=== PATIENT | female | born 1950 | race Caucasian/White ===

== ENCOUNTER → 2017-04-14 | Outpatient (CLI) | payer MEDICAID ==
[2013-10-31 18:34] VITALS: BP 113/74
[~2017-04-14] MED LIST: AMITRIPTYLINE H25 M1 PO; CIPRO 500MG TA500 MG PO; DEMADEX10 MG PO; DIFLUCAN150 MG PO; HCTZ 25MG25 MG PO; HUMULIN 70/30 PE3 ML SC; HYDROCODONE BIT1 T46 PO; LAMISIL1% TP; LANSOPRAZOLE15 MG PO; LANTUS PEN100 U/ML SC; LASIX40 MG PO; LEVAQUIN 250MG250 M1 PO; LISINOPRIL20 MG PO; MELOXICAM15 MG PO; NOVOLOG 100U100 U/M1 SC; NOVOLOG 100U100 U/M1 SQ; Patient's Own Medication PO; SIMVASTATIN40 MG PO; ZESTRIL 5MG5 MG PO; ZYRTEC10 MG PO
== END ==
LOC: LAB 12:00
DX: E11.9 Type 2 diabetes mellitus without complications (principal)

== ENCOUNTER 2017-05-23 13:30 | Outpatient (RCR) | payer MEDICAID ==
[2013-10-31 18:34] VITALS: BP 113/74
== END 2017-05-23 14:00 | disposition home or self-care (01) ==
LOC: PT 13:30
DX: E11.9 Type 2 diabetes mellitus without complications (principal); Z91.81 History of falling; M62.81 Muscle weakness (generalized)

== ENCOUNTER → 2017-07-11 | Outpatient (CLI) | payer MEDICAID ==
[2013-10-31 18:34] VITALS: BP 113/74
== END ==
LOC: MAMMO 09:09
DX: Z12.31 Encounter for screening mammogram for malignant neoplasm of breast (principal)
CPT/HCPCS: G0202

== ENCOUNTER → 2017-07-13 | Outpatient (CLI) | payer MEDICAID ==
[2013-10-31 18:34] VITALS: BP 113/74
== END ==
LOC: LAB 09:51
DX: E11.9 Type 2 diabetes mellitus without complications (principal)

== ENCOUNTER → 2017-10-02 | Outpatient (CLI) | payer MEDICAID ==
[2013-10-31 18:34] VITALS: BP 113/74
[2017-10-02 08:48] LABS: ALBUMIN 3.7 g/dL (3.5-5.0); BUN/CREATININE RATIO 28.5 (6.0-26.0); CALCIUM 9.4 mg/dL (8.4-10.2); POTASSIUM 4.1 mmol/L (3.6-5.0); TOTAL BILIRUBIN 0.7 mg/dL (0.2-1.3); TOTAL PROTEIN 7.3 g/dL (6.3-8.2)
== END ==
LOC: LAB 08:05
PROVIDERS: Family Medicine
DX: I10 Essential (primary) hypertension (principal); E11.9 Type 2 diabetes mellitus without complications; Z12.12 Encounter for screening for malignant neoplasm of rectum

== ENCOUNTER → 2017-10-11 | Outpatient (CLI) | payer MEDICAID ==
[2013-10-31 18:34] VITALS: BP 113/74
== END ==
LOC: LAB 10:07
DX: I10 Essential (primary) hypertension (principal); E11.9 Type 2 diabetes mellitus without complications; Z12.12 Encounter for screening for malignant neoplasm of rectum

== ENCOUNTER → 2017-10-27 | Outpatient (CLI) | payer MEDICAID ==
[2013-10-31 18:34] VITALS: BP 113/74
== END ==
LOC: RAD 15:33
DX: M54.2 Cervicalgia (principal); M25.512 Pain in left shoulder; E11.42 Type 2 diabetes mellitus with diabetic polyneuropathy; E11.9 Type 2 diabetes mellitus without complications; M85.88 Other specified disorders of bone density and structure, other site; M50.30 Other cervical disc degeneration, unspecified cervical region

== ENCOUNTER → 2017-11-06 | Outpatient (CLI) | payer MEDICAID ==
[2013-10-31 18:34] VITALS: BP 113/74
== END ==
LOC: RAD 13:12
DX: M54.2 Cervicalgia (principal); S46.812A Strain of other muscles, fascia and tendons at shoulder and upper arm level, left arm, initial encounter; X58.XXXA Exposure to other specified factors, initial encounter; M75.22 Bicipital tendinitis, left shoulder; M19.012 Primary osteoarthritis, left shoulder; M77.8 Other enthesopathies, not elsewhere classified; E11.42 Type 2 diabetes mellitus with diabetic polyneuropathy

== ENCOUNTER 2017-11-30 10:00 | Outpatient (RCR) | payer MEDICAID ==
[2013-10-31 18:34] VITALS: BP 113/74
== END 2017-12-04 | disposition home or self-care (01) ==
LOC: PT
DX: M25.512 Pain in left shoulder (principal)

== ENCOUNTER 2017-12-21 10:00 | Outpatient (RCR) | payer MEDICAID ==
[2013-10-31 18:34] VITALS: BP 113/74
== END 2017-12-21 10:30 | disposition home or self-care (01) ==
LOC: PT 10:00
DX: M75.122 Complete rotator cuff tear or rupture of left shoulder, not specified as traumatic (principal); Z88.8 Allergy status to other drugs, medicaments and biological substances

== ENCOUNTER → 2017-12-28 | Outpatient (CLI) | payer MEDICAID ==
[2013-10-31 18:34] VITALS: BP 113/74
== END ==
LOC: LAB 16:46
DX: M54.2 Cervicalgia (principal); I10 Essential (primary) hypertension; E11.9 Type 2 diabetes mellitus without complications

== ENCOUNTER → 2018-04-19 | Outpatient (CLI) | payer MEDICAID ==
[~2018-04-19] VITALS: Ht 160 cm; Wt 106.2 kg
[2018-04-19 14:20] VITALS: BP 180/68
== END ==
LOC: AMSURD 14:22
DX: I10 Essential (primary) hypertension (principal)

== ENCOUNTER → 2018-04-25 | Outpatient (CLI) | payer MEDICAID ==
[2018-04-19 14:20] VITALS: BP 180/68
== END ==
LOC: LAB 15:58
DX: E11.9 Type 2 diabetes mellitus without complications (principal)

== ENCOUNTER → 2018-07-12 | Outpatient (CLI) | payer MEDICAID ==
[2018-04-19 14:20] VITALS: BP 180/68
== END ==
LOC: MAMMO 09:04
DX: Z12.31 Encounter for screening mammogram for malignant neoplasm of breast (principal)

== ENCOUNTER → 2018-10-04 | Outpatient (CLI) | payer MEDICAID ==
[2018-04-19 14:20] VITALS: BP 180/68
[2018-10-04 08:50] LABS: ALBUMIN 3.7 g/dL (3.5-5.0); CALCIUM 9.3 mg/dL (8.4-10.2); POTASSIUM 4.5 mmol/L (3.6-5.0); TOTAL BILIRUBIN 0.6 mg/dL (0.2-1.3); TOTAL PROTEIN 6.6 g/dL (6.3-8.2)
== END ==
LOC: LAB 08:11
PROVIDERS: Family Medicine
DX: E11.9 Type 2 diabetes mellitus without complications (principal); I10 Essential (primary) hypertension; E78.2 Mixed hyperlipidemia

== ENCOUNTER → 2018-10-11 | Outpatient (CLI) | payer MEDICAID ==
[2018-04-19 14:20] VITALS: BP 180/68
[2018-10-11 14:40] LABS: URINE APPEARANCE CLOUDY; URINE COLOR YELLOW
[2018-10-11 14:41] LABS: URINE BILIRUBIN NEGATIVE (NEGATIVE); URINE BLOOD 50 ery/uL (NEGATIVE); URINE KETONE NEGATIVE (NEGATIVE); URINE LEUKOCYTE ESTERASE 1+ (NEGATIVE); URINE NITRATE POSITIVE (NEGATIVE); URINE PROTEIN(semi-quant) TRACE mg/dL (NEGATIVE); URINE UROBILINOGEN NORMAL (NORMAL); URINE WBC 31-50 /hpf (0-3)
== END ==
LOC: LAB 14:22
PROVIDERS: Family Medicine
DX: I35.1 Nonrheumatic aortic (valve) insufficiency (principal); I11.9 Hypertensive heart disease without heart failure; R06.09 Other forms of dyspnea; E11.65 Type 2 diabetes mellitus with hyperglycemia; L30.9 Dermatitis, unspecified; N39.0 Urinary tract infection, site not specified

== ENCOUNTER → 2018-10-17 | Outpatient (CLI) | payer MEDICAID ==
[2018-04-19 14:20] VITALS: BP 180/68
[2018-10-17 12:33] LABS: URINE APPEARANCE CLEAR; URINE COLOR YELLOW
[2018-10-17 12:34] LABS: URINE BILIRUBIN NEGATIVE (NEGATIVE); URINE BLOOD TRACE (NEGATIVE); URINE KETONE NEGATIVE (NEGATIVE); URINE LEUKOCYTE ESTERASE 1+ (NEGATIVE); URINE NITRATE NEGATIVE (NEGATIVE); URINE PROTEIN(semi-quant) NEGATIVE (NEGATIVE); URINE UROBILINOGEN NORMAL (NORMAL)
== END ==
LOC: LAB 11:08
PROVIDERS: Family Medicine
DX: N39.0 Urinary tract infection, site not specified (principal)

== ENCOUNTER → 2018-10-23 | Outpatient (CLI) | payer MEDICAID ==
[2018-04-19 14:20] VITALS: BP 180/68
[2018-10-23 20:09] LABS: URINE APPEARANCE HAZY; URINE COLOR YELLOW
[2018-10-23 20:10] LABS: URINE BILIRUBIN NEGATIVE (NEGATIVE); URINE BLOOD TRACE (NEGATIVE); URINE KETONE NEGATIVE (NEGATIVE); URINE LEUKOCYTE ESTERASE TRACE (NEGATIVE); URINE NITRATE NEGATIVE (NEGATIVE); URINE PROTEIN(semi-quant) TRACE mg/dL (NEGATIVE); URINE UROBILINOGEN NORMAL (NORMAL)
== END ==
LOC: LAB 16:05
PROVIDERS: Family Medicine
DX: N39.0 Urinary tract infection, site not specified (principal)

== ENCOUNTER → 2018-10-25 | Outpatient (CLI) | payer MEDICAID ==
[2018-04-19 14:20] VITALS: BP 180/68
[2018-10-25 13:18] LABS: URINE APPEARANCE CLEAR; URINE BILIRUBIN NEGATIVE (NEGATIVE); URINE BLOOD TRACE (NEGATIVE); URINE COLOR YELLOW; URINE KETONE NEGATIVE (NEGATIVE); URINE LEUKOCYTE ESTERASE NEGATIVE (NEGATIVE); URINE NITRATE NEGATIVE (NEGATIVE); URINE PROTEIN(semi-quant) NEGATIVE (NEGATIVE); URINE UROBILINOGEN NORMAL (NORMAL)
[2018-10-25 13:19] LABS: URINE WBC 0-1 /hpf (0-3)
[2018-10-25 14:11] LABS: BASO # 0.1 (0.02-0.10); EOS # 0.3 (0.04-0.40); EOS % 2.5 % (1.0-5.0); HEMOGLOBIN 13.1 g/dL (12.5-16.0); LYMPH# 3.9 (1.50-4.00); MEAN CELL VOLUME 87 fl (78-100); MEAN CORPUSCULAR HEMOGLOBIN 29 pg (27-31); MEAN CORPUSCULAR HGB CONC 33 g/dL (33-37); MEAN PLATELET VOLUME 10.5 fl (7.4-10.4); PLATELET COUNT 230 K/mm3 (130-400); RED BLOOD COUNT 4.59 M/mm3 (4.10-5.30); RED CELL DISTRIBUTION WIDTH 13.4 % (11.5-14.5); WHITE BLOOD COUNT 10.2 K/mm3 (4.8-10.8)
[2018-10-25 14:20] LABS: CALCIUM 9.3 mg/dL (8.4-10.2); POTASSIUM 3.9 mmol/L (3.6-5.0)
[2018-10-25 15:47] LABS: ERYTHROCYTE SEDIMENTATION RATE 20 mm/hr (0-30)
== END ==
LOC: LAB 12:53 → RAD 12:53
PROVIDERS: Family Medicine
DX: K76.9 Liver disease, unspecified (principal); N28.83 Nephroptosis; Z90.710 Acquired absence of both cervix and uterus

== ENCOUNTER → 2018-11-08 | Outpatient (CLI) | payer MEDICAID ==
[2018-04-19 14:20] VITALS: BP 180/68
== END ==
LOC: RAD 14:58
DX: R16.0 Hepatomegaly, not elsewhere classified (principal)
CPT/HCPCS: Q9967

== ENCOUNTER → 2019-01-29 | Outpatient (CLI) | payer MEDICAID ==
[2018-04-19 14:20] VITALS: BP 180/68
== END ==
LOC: LAB 09:05
DX: G45.3 Amaurosis fugax (principal)

== ENCOUNTER → 2019-01-31 | Outpatient (CLI) | payer MEDICAID ==
[2018-04-19 14:20] VITALS: BP 180/68
== END ==
LOC: LAB 15:22
DX: E11.9 Type 2 diabetes mellitus without complications (principal); I10 Essential (primary) hypertension

== ENCOUNTER → 2019-05-02 | Outpatient (CLI) | payer MEDICAID ==
[2018-04-19 14:20] VITALS: BP 180/68
== END ==
LOC: LAB 13:51
DX: E11.9 Type 2 diabetes mellitus without complications (principal)

== ENCOUNTER → 2019-06-27 | Outpatient (CLI) | payer MEDICAID ==
[2018-04-19 14:20] VITALS: BP 180/68
== END ==
LOC: MAMMO 09:15
DX: Z12.31 Encounter for screening mammogram for malignant neoplasm of breast (principal)

== ENCOUNTER 2019-10-23 08:45 | Inpatient (IN) | payer MEDICAID ==
[~2019-10-23] VITALS: Ht 160 cm; Wt 113.2 kg
[2019-10-23 10:03] LABS: HEMATOCRIT 45.2 % (37.0-47.0); HEMOGLOBIN 14.3 g/dL (12.5-16.0); MEAN CELL VOLUME 86 fl (78-100); MEAN CORPUSCULAR HEMOGLOBIN 27 pg (27-31); MEAN CORPUSCULAR HGB CONC 32 g/dL (33-37); MEAN PLATELET VOLUME 10.1 fl (7.4-10.4); PLATELET COUNT 246 K/mm3 (130-400); RED BLOOD COUNT 5.28 M/mm3 (4.10-5.30); RED CELL DISTRIBUTION WIDTH 14.9 % (11.5-14.5); WHITE BLOOD COUNT 16.2 K/mm3 (4.8-10.8)
[2019-10-23 10:11] LABS: BAND 16 % (0-10); LYMPHOCYTE 2 % (20-51); MONOCYTE 4 % (3-10); NEUTROPHILS 78 % (42-75)
[2019-10-23 10:13] LABS: ALBUMIN 3.8 g/dL (3.4-4.8)
[2019-10-23 10:14] LABS: POTASSIUM 4.6 mmol/L (3.5-5.1)
[2019-10-23 10:15] LABS: CALCIUM 9.5 mg/dL (8.3-10.5)
[2019-10-23 10:16] LABS: TOTAL PROTEIN 6.9 g/dL (6.2-8.1)
[2019-10-23 10:18] LABS: TOTAL BILIRUBIN 0.6 mg/dL (0.2-1.2)
[2019-10-23] MEDS ORDERED: NATURE'S BLEND500 M1 PO (10:19)
[2019-10-23] MEDS ORDERED: CITRACAL PETITE1 TAB PO (10:20)
[2019-10-23] MEDS ORDERED: GARLIC1 EAC1 PO (10:20)
[2019-10-23] MEDS ORDERED: ZESTRIL30 MG PO (10:21)
[2019-10-23] MEDS ORDERED: LOPRESSOR 225 MG/TAB PO (10:22)
[2019-10-23] MEDS ORDERED: LANTUS PEN100 U/ML SQ (10:22)
[2019-10-23] MEDS ORDERED: INSULIN NOVO100 U/ML SQ ×2 (10:23)
[2019-10-23] MEDS ORDERED: GLUCOPHAGE PO (10:24)
[2019-10-23] MEDS ORDERED: LEADER OMEPRAZO20 MG PO (10:25)
[2019-10-23] MEDS ORDERED: SIMVASTATIN20 M1 PO (10:25)
[2019-10-23] MEDS ORDERED: TORSEMIDE5 MG PO (10:26)
[2019-10-23 11:53] LABS: URINE APPEARANCE HAZY; URINE COLOR YELL0W
[2019-10-23 11:54] LABS: URINE BILIRUBIN NEGATIVE (NEGATIVE); URINE BLOOD TRACE (NEGATIVE); URINE KETONE NEGATIVE (NEGATIVE); URINE NITRATE POSITIVE (NEGATIVE); URINE PROTEIN(semi-quant) TRACE mg/dL (NEGATIVE); URINE UROBILINOGEN NORMAL (NORMAL)
[2019-10-23 11:55] LABS: URINE LEUKOCYTE ESTERASE TRACE (NEGATIVE); URINE WBC 16-30 /hpf (0-3)
[2019-10-23 11:56] LABS: URINE MUCUS PRESENT (NOT PRESENT)
[2019-10-23 13:05] VITALS: BP 143/76
[2019-10-23 14:10] VITALS: BP 143/76
[2019-10-23 15:12] VITALS: BP 172/84
[2019-10-23 18:12] VITALS: BP 139/83
[2019-10-23 22:47] VITALS: BP 138/74
[2019-10-24 02:53] VITALS: BP 113/68
[2019-10-24 06:23] VITALS: BP 138/79
[2019-10-24 08:33] LABS: EOS # 0.3 (0.04-0.40); EOS % 3.1 % (1.0-5.0); HEMATOCRIT 36.2 % (37.0-47.0); HEMOGLOBIN 11.5 g/dL (12.5-16.0); LYMPH# 1.9 (1.50-4.00); MEAN CELL VOLUME 87 fl (78-100); MEAN CORPUSCULAR HEMOGLOBIN 28 pg (27-31); MEAN CORPUSCULAR HGB CONC 32 g/dL (33-37); MEAN PLATELET VOLUME 10.3 fl (7.4-10.4); NEU # 5.5 (1.40-6.50); PLATELET COUNT 210 K/mm3 (130-400); RED BLOOD COUNT 4.17 M/mm3 (4.10-5.30); WHITE BLOOD COUNT 8.7 K/mm3 (4.8-10.8)
[2019-10-24 08:45] LABS: CALCIUM 8.3 mg/dL (8.3-10.5)
[2019-10-24 11:22] VITALS: BP 158/73
[2019-10-24 15:25] VITALS: BP 137/77
[2019-10-24 18:47] VITALS: BP 155/81
[2019-10-24 23:14] VITALS: BP 169/79
[2019-10-25 02:56] VITALS: BP 123/72
[2019-10-25 06:18] VITALS: BP 169/93
[2019-10-25 11:05] VITALS: BP 184/83
[2019-10-25 14:53] VITALS: BP 144/79
[2019-10-25 17:48] VITALS: BP 153/84
[2019-10-25 23:00] VITALS: BP 130/75
[2019-10-26 03:06] VITALS: BP 129/70
[2019-10-26 06:32] VITALS: BP 132/80
[2019-10-26 11:01] VITALS: BP 158/82
[2019-10-26 15:10] VITALS: BP 181/75
[2019-10-26 18:53] VITALS: BP 185/68
[2019-10-26 23:40] VITALS: BP 155/72
[2019-10-27 03:05] VITALS: BP 138/65
[2019-10-27 06:35] VITALS: BP 150/74
[2019-10-27 11:17] VITALS: BP 171/76
[2019-10-27 15:21] VITALS: BP 136/70
[2019-10-27 18:53] VITALS: BP 156/76
[2019-10-27 23:13] VITALS: BP 184/81
[2019-10-28 03:06] VITALS: BP 147/60
[2019-10-28 06:06] VITALS: BP 178/84
[2019-10-28 07:12] LABS: URINE APPEARANCE CLEAR; URINE BILIRUBIN NEGATIVE (NEGATIVE); URINE BLOOD TRACE (NEGATIVE); URINE COLOR YELLOW; URINE GLUCOSE NEGATIVE (NEGATIVE); URINE KETONE NEGATIVE (NEGATIVE); URINE LEUKOCYTE ESTERASE NEGATIVE (NEGATIVE); URINE MUCUS PRESENT (NOT PRESENT); URINE NITRATE NEGATIVE (NEGATIVE); URINE PROTEIN(semi-quant) NEGATIVE (NEGATIVE); URINE UROBILINOGEN NORMAL (NORMAL)
[2019-10-28] MEDS ORDERED: CEPHALEXIN500 M1 PO (11:10)
[2019-10-28] MEDS ORDERED: LANTUS PEN100 U/ML SQ (11:14)
[2019-10-28 11:22] VITALS: BP 159/87
== END 2019-10-28 13:30 | disposition home or self-care (01) | DRG 642 ==
LOC: ED 08:45 → MED/SURG 12:25
PROVIDERS: Family Medicine; ADMIT Physician Assistant
DX: E78.5 Hyperlipidemia, unspecified (principal); A41.9 Sepsis, unspecified organism; N39.0 Urinary tract infection, site not specified; E11.9 Type 2 diabetes mellitus without complications; I10 Essential (primary) hypertension; E86.0 Dehydration; R19.7 Diarrhea, unspecified; G89.29 Other chronic pain; M25.519 Pain in unspecified shoulder; R53.81 Other malaise; W18.11XA Fall from or off toilet without subsequent striking against object, initial encounter; Y92.002 Bathroom of unspecified non-institutional (private) residence as the place of occurrence of the external cause; Z79.4 Long term (current) use of insulin
CPT/HCPCS: A4216; J0696; J1650; J1815; J7030

== ENCOUNTER → 2019-11-04 | Outpatient (CLI) | payer MEDICAID ==
[2019-10-28 11:22] VITALS: BP 159/87
[~2019-11-04] MED LIST changes: +CEPHALEXIN500 M1 PO; +CITRACAL PETITE1 TAB PO; +GARLIC1 EAC1 PO; +GLUCOPHAGE PO; +INSULIN NOVO100 U/ML SQ; +LANTUS PEN100 U/ML SQ; +LEADER OMEPRAZO20 MG PO; +LOPRESSOR 225 MG/TAB PO; +NATURE'S BLEND500 M1 PO; +SIMVASTATIN20 M1 PO; +TORSEMIDE5 MG PO; +ZESTRIL30 MG PO
[2019-11-04 08:11] LABS: ALBUMIN 3.6 g/dL (3.4-4.8); POTASSIUM 3.9 mmol/L (3.5-5.1)
[2019-11-04 08:12] LABS: CALCIUM 9.7 mg/dL (8.3-10.5)
[2019-11-04 08:13] LABS: TOTAL PROTEIN 6.6 g/dL (6.2-8.1)
[2019-11-04 08:15] LABS: TOTAL BILIRUBIN 0.4 mg/dL (0.2-1.2)
== END ==
LOC: LAB 07:48
PROVIDERS: Family Medicine
DX: E11.9 Type 2 diabetes mellitus without complications (principal); I10 Essential (primary) hypertension

== ENCOUNTER → 2020-01-24 | Outpatient (CLI) | payer MEDICAID ==
[~2020-01-24] MED LIST changes: +AMITRIPTYLINE H25 M2 PO; +FLONASE ALLERG9.9 ML NS; +OLOPATADINE HCL5 ML OU; +TRAMADOL 50 MG TAB PO
[2020-01-24 10:42] LABS: HEMATOCRIT 43.1 % (37.0-47.0); HEMOGLOBIN 13.6 g/dL (12.5-16.0); MEAN CELL VOLUME 84 fl (78-100); MEAN CORPUSCULAR HEMOGLOBIN 27 pg (27-31); MEAN CORPUSCULAR HGB CONC 32 g/dL (33-37); MEAN PLATELET VOLUME 9.8 fl (7.4-10.4); PLATELET COUNT 315 K/mm3 (130-400); RED BLOOD COUNT 5.13 M/mm3 (4.10-5.30); RED CELL DISTRIBUTION WIDTH 14.9 % (11.5-14.5); WHITE BLOOD COUNT 17.6 K/mm3 (4.8-10.8)
[2020-01-24 10:47] LABS: URINE APPEARANCE CLEAR; URINE BILIRUBIN NEGATIVE (NEGATIVE); URINE BLOOD 50 ery/uL (NEGATIVE); URINE COLOR YELLLOW; URINE GLUCOSE NEGATIVE (NEGATIVE); URINE KETONE NEGATIVE (NEGATIVE); URINE LEUKOCYTE ESTERASE NEGATIVE (NEGATIVE); URINE NITRATE NEGATIVE (NEGATIVE); URINE PROTEIN(semi-quant) NEGATIVE (NEGATIVE); URINE UROBILINOGEN NORMAL (NORMAL)
[2020-01-24 10:49] LABS: POTASSIUM 3.6 mmol/L (3.5-5.1)
[2020-01-24 10:50] LABS: CALCIUM 9.6 mg/dL (8.3-10.5)
[2020-01-24 13:06] LABS: LYMPHOCYTE 26 % (20-51); MONOCYTE 6 % (3-10); NEUTROPHILS 51 % (42-75)
== END ==
LOC: LAB 09:26
PROVIDERS: Family Medicine
DX: E11.9 Type 2 diabetes mellitus without complications (principal); N39.0 Urinary tract infection, site not specified; D72.829 Elevated white blood cell count, unspecified

== ENCOUNTER 2020-01-26 21:56 | Inpatient (IN) | payer MEDICAID ==
[~2020-01-26] VITALS: Ht 160 cm; Wt 98.5 kg
[~2020-01-26 21:56] MED LIST changes: -AMITRIPTYLINE H25 M2 PO; -FLONASE ALLERG9.9 ML NS; -OLOPATADINE HCL5 ML OU; -TRAMADOL 50 MG TAB PO
[2020-01-26 23:30] LABS: HEMATOCRIT 43.6 % (37.0-47.0); HEMOGLOBIN 14.5 g/dL (12.5-16.0); MEAN CELL VOLUME 81 fl (78-100); MEAN CORPUSCULAR HEMOGLOBIN 27 pg (27-31); MEAN CORPUSCULAR HGB CONC 33 g/dL (33-37); MEAN PLATELET VOLUME 10.2 fl (7.4-10.4); PLATELET COUNT 366 K/mm3 (130-400); RED BLOOD COUNT 5.37 M/mm3 (4.10-5.30); RED CELL DISTRIBUTION WIDTH 15.1 % (11.5-14.5)
[2020-01-26 23:37] LABS: ALBUMIN 3.5 g/dL (3.4-4.8)
[2020-01-26 23:38] LABS: POTASSIUM 3.6 mmol/L (3.5-5.1)
[2020-01-26 23:40] LABS: TOTAL PROTEIN 6.6 g/dL (6.2-8.1)
[2020-01-26 23:42] LABS: TOTAL BILIRUBIN 0.3 mg/dL (0.2-1.2)
[2020-01-26 23:59] LABS: WHITE BLOOD COUNT 25.7 K/mm3 (4.8-10.8)
[2020-01-27] VITALS (10 sets, daily range): BP systolic 15–135; BP diastolic 37–68
[2020-01-27 00:01] LABS: LYMPHOCYTE 18 % (20-51); MONOCYTE 6 % (3-10); NEUTROPHILS 48 % (42-75)
[2020-01-27] MEDS ORDERED: AMITRIPTYLINE H25 M2 PO (00:49)
[2020-01-27] MEDS ORDERED: FLONASE ALLERG9.9 ML NS (00:51)
[2020-01-27] MEDS ORDERED: LANTUS PEN100 U/ML SQ (00:52)
[2020-01-27] MEDS ORDERED: OLOPATADINE HCL5 ML OU (00:55)
[2020-01-27] MEDS ORDERED: TRAMADOL 50 MG TAB PO (00:57)
--- NOTE | 2020-01-27 01:00 | NUR ---
Patient to the floor from the ER with a diagnosis of diarrhea and dehydration. Patient feeling weak. Unable to get IV in the ER after 6 tries. Plan to have PICC unit from [facility] place PICC today. Upon assessment, patient's skin is tenting, bowels hyper active in all four quadrants and patient is occasionally dizzy upon standing. Patient is alert and oriented x4. Patient's pulses both radially and pedal are +1. Patient reports occasional abdominal pain/ache.
--- NOTE | 2020-01-27 03:30 | NUR ---
Patient reported nausea. Dr. Jackson notified and verbal order repeated back for zofran 4mg prn q6h. Zofran provided. Nausea subsided and patient able to take flagyl po with 1/2 of a cracker and potassium tablet with 40ml of powerade. Patient up to bedside commode and a little dizzy. Patient had a bm of liquid stool, 150ml and pate/pink in color.
--- NOTE | 2020-01-27 06:30 | NUR ---
Patient's BP low at 66/38 via dynamap. BP taken manually at 72/38. Patient light headed and feels as if she could pass out. Dr. Jackson notified. Patient monitored and BP taken regulary.
--- NOTE | 2020-01-27 07:14 | NUR ---
Report given to VICENTE Seymour.
--- NOTE | 2020-01-27 07:15 | NUR ---
REPORT RECEIVED FROM Eliane SCANLON AND ELIOTRN
--- NOTE | 2020-01-27 07:15 | NUR ---
KHAI OVIEDO TIRE STRIPPER IN WITH PATIENT.
--- NOTE | 2020-01-27 07:20 | NUR ---
ABLE TO GET IV STARTED BY Jerri LARSEN RN. 22 GAUGE RIGHT WRIST. PROVIDER NOTIFIED. ORDER TO START IV FLUIDS RECEIVED. STARTED LR AT 1000 MLS/HR.
--- NOTE | 2020-01-27 07:23 | NUR ---
PATIENT'S BLOOD PRESSURE RECHECK. BP PER MACHINE IS 85/40. HEART RATE 82. SP02 93%. PROVIDER NOTIFIED.
--- NOTE | 2020-01-27 07:30 | NUR ---
AT NURSES STATION AT THIS TIME. HOLDING OFF ON HAVING PUT IN CENTRAL LINE AT THIS TIME. DUE TO BEING ABLE TO GET IV ACCESS AND PLAN IS FOR TRANSFER. WILL REEVALUATE NEED ONCE KHAI,GRAY TALKS WITH LIZA ABOUT TRANSFER.
--- NOTE | 2020-01-27 07:50 | NUR ---
MANUAL BLOOD PRESSURE OBTAINED. MANUAL BP IN LEFT ARM 80/58. PROVIDER NOTIFIED.
--- NOTE | 2020-01-27 08:15 | NUR ---
RECHECKED MANUAL BLOOD PRESSURE. BP 88/58. HEART RATE 84. SP02 97% ON ROOM AIR.
[2020-01-27 08:18] LABS: HEMATOCRIT 41.5 % (37.0-47.0); HEMOGLOBIN 13.5 g/dL (12.5-16.0); MEAN CELL VOLUME 82 fl (78-100); MEAN CORPUSCULAR HEMOGLOBIN 27 pg (27-31); MEAN CORPUSCULAR HGB CONC 33 g/dL (33-37); MEAN PLATELET VOLUME 10.1 fl (7.4-10.4); PLATELET COUNT 260 K/mm3 (130-400); RED BLOOD COUNT 5.05 M/mm3 (4.10-5.30); RED CELL DISTRIBUTION WIDTH 15.1 % (11.5-14.5)
--- NOTE | 2020-01-27 08:20 | NUR ---
PATIENT INCONTINENT OF WATER CLEAR STOOL WITH GREEM AND SCANT AMOUNT OF RED COLORED TISSUE/FILAMENT LOOKING PARTICLES IN IT. STOOL HAS A FISH SMELL TO IT. PATIENT SATURATES BRIEF AND BED PAD. [facility] PROVIDED BY THIS NURSE AND KHAI OVIEDO APRN. PALMA CATHETER INSERTED WITHOUT DIFFICUTLY. PATIENT HAD SOME MILD DISCOMFORT WITH MANIPULATION TO CLEAN AND INSERTION SITE. IMMEDIATE FLOW OF ORANGE CLOUDY URINE. VERY LITTLE OUTPUT. APPROXIMATELY 15 MLS. PALMA SECURED. UA TO LAB. CALL LIGHT WITHIN REACH. BED ALARM ON.
[2020-01-27 08:38] LABS: WHITE BLOOD COUNT 24.9 K/mm3 (4.8-10.8)
[2020-01-27 08:39] LABS: BAND 1 % (0-10); LYMPHOCYTE 22 % (20-51); MONOCYTE 6 % (3-10); NEUTROPHILS 46 % (42-75)
[2020-01-27 08:46] LABS: POTASSIUM 3.6 mmol/L (3.5-5.1)
[2020-01-27 08:47] LABS: CALCIUM 8.5 mg/dL (8.3-10.5)
[2020-01-27 08:48] LABS: TOTAL PROTEIN 5.6 g/dL (6.2-8.1)
[2020-01-27 08:50] LABS: TOTAL BILIRUBIN 0.3 mg/dL (0.2-1.2)
--- NOTE | 2020-01-27 08:58 | NUR ---
CONTACTED [facility] AT THIS TIME TO SEE IF THEY HAD PATIENT'S ROOM NUMBER. SPOKE WITH MAYCOL TRUST MANAGER. PATIENT GOING TO ROOM 15 IMCU. UNDER THE CARE OF . NUMBER FOR REPORT IS [phone]. PROVIDER NOTIFIED. FAMILY NOTIFIED.
--- NOTE | 2020-01-27 09:17 | NUR ---
CALLED EMS. SPOKE TO MIKE. NOTIFIED OF NEED FOR PATIENT TRANSFER TO [facility]. EMS SHOULD BE LEAVING STATION SOON.
--- NOTE | 2020-01-27 09:42 | NUR ---
PATIENT REPORTS HAVING OVERALL GENERALIZED PAIN WHICH IS NORMAL FOR HER AND THAT SHE TAKES ULTRAM AT HOME FOR IT. REQUESTED SOMETHING FOR PAIN PRIOR TO TRASNFER. PATIENT ALSO REPORTS HAVING PAIN TO ABDOMEN WITH ANY TOUCH OR MANIPULATION. DENIES ANY PAIN UNTLESS TOUCHED. PATIENT STATES "MY ABDOMEN IS STILL REALLY SORE" ORDER FOR FENTANYL 25MCG RECEIVED. 2ND BAG OF LACTATED RINGERS COMPLETE. LR STARTED AT 250 MLS/HR PER ORDER. PATIENT'S SISTER IN ROOM. REPORTS THAT PATIENT DOES NOT HAVE DPOA PAPERWORK, DUE TO PATIENT LIKING TO FEEL LIKE SHE IS STILL IN CONTROL OF HER LIFE AND GIVE HER A SENSE OF INDEPENDENCE, BUT DUE TO PATIENT'S DEVELOPEMENTAL DELAY SHE MAKES ALL THE BIG MEDICAL DECISIONS FOR PATIENT AND SHE IS WHO THEY GO TO. REPORTS THAT PATIENT IS A DNR. SISTER ASKS MULTIPLE TIMES AND IS VERY CONCERNED ABOUT IF DR. ALMEIDA IN [place] WAS NOTIFIED OF PATIENT'S DEVELOPEMENTAL DELAYS AND THAT PATIENT HAS MENTALITY OF A 10 YEAR OLD.
--- NOTE | 2020-01-27 09:52 | NUR ---
REPORT GIVEN TO VICENTE CUNNINGHAM AT [facility] ICU. INFORMED OF PATIENT'S COGNITIVE DISABILITIES AND SISTERS REQUEST TO NOTIFY STAFF AND . DENIES ANY QUESTIONS FOR THE NURSE AT THIS TIME.
--- NOTE | 2020-01-27 10:03 | NUR ---
PATIENT LEFT FACILITY VIA EMS AT THIS TIME. PERSONAL BELONGINGS SENT WITH PATIENT'S SISTER. PATIENT'S LIFE ALERT SENT WITH EMS . LIFE ALERT WAS IN BIOHAZARD BAG WRAPPED WITH GLOVES IN MED ROOM. PATIENT'S SISTER LEFT TO GO TO [place] TO BE THERE WHEN PATIENT ARRIVED. PATIENT LEFT WITH LR INFUSING. PALMA IN PLACE.
[2020-01-27 12:17] LABS: URINE APPEARANCE CLEAR; URINE BILIRUBIN NEGATIVE (NEGATIVE); URINE BLOOD TRACE (NEGATIVE); URINE COLOR YELLOW; URINE GLUCOSE NEGATIVE (NEGATIVE); URINE KETONE NEGATIVE (NEGATIVE); URINE LEUKOCYTE ESTERASE NEGATIVE (NEGATIVE); URINE NITRATE NEGATIVE (NEGATIVE); URINE PROTEIN(semi-quant) 1+ mg/dL (NEGATIVE); URINE UROBILINOGEN NORMAL (NORMAL)
[2020-01-27 12:18] LABS: URINE MUCUS PRESENT (NOT PRESENT)
--- NOTE | 2020-01-27 15:47 | NUR ---
RECHECKED MANUAL BLOOD PRESSURE. BP 88/58. HEART RATE 84. SP02 97% ON ROOM AIR.
== END 2020-01-27 10:03 | disposition short-term general hospital (02) | DRG 392 ==
LOC: ED 21:56 → MED/SURG 01-27 00:35
PROVIDERS: Family Medicine; Nurse Practitioner; ADMIT Family Medicine
DX: R19.7 Diarrhea, unspecified (principal); E86.1 Hypovolemia; I95.9 Hypotension, unspecified; E11.9 Type 2 diabetes mellitus without complications; Z79.4 Long term (current) use of insulin; Z87.828 Personal history of other (healed) physical injury and trauma; Z85.42 Personal history of malignant neoplasm of other parts of uterus; Z90.710 Acquired absence of both cervix and uterus
CPT/HCPCS: J3010; J7120

== ENCOUNTER 2020-02-04 16:33 | Inpatient (IN) | payer MEDICAID ==
[~2020-02-04] VITALS: Ht 160 cm; Wt 102.0 kg
[~2020-02-04 16:33] MED LIST changes: +AMITRIPTYLINE H25 M2 PO; +FLONASE ALLERG9.9 ML NS; +OLOPATADINE HCL5 ML OU; +TRAMADOL 50 MG TAB PO
[2020-02-04] MEDS ORDERED: BENTYL 20MG20 MG/TAB PO (17:02)
[2020-02-04] MEDS ORDERED: DESENEX43 GM TP (18:13)
[2020-02-04] MEDS ORDERED: ACIDOPHILUS1 EAC2 PO (18:13)
[2020-02-04] MEDS ORDERED: NOVOLOG 100U100 U/ML SQ (18:15)
[2020-02-04 20:00] VITALS: BP 162/85
[2020-02-04 20:50] VITALS: BP 162/85
[2020-02-05 05:28] VITALS: BP 160/81
[2020-02-05 05:36] VITALS: BP 160/81
[2020-02-05 05:56] LABS: HEMATOCRIT 34.8 % (37.0-47.0); HEMOGLOBIN 10.9 g/dL (12.5-16.0); MEAN CELL VOLUME 85 fl (78-100); MEAN CORPUSCULAR HEMOGLOBIN 27 pg (27-31); MEAN CORPUSCULAR HGB CONC 31 g/dL (33-37); MEAN PLATELET VOLUME 9.9 fl (7.4-10.4); PLATELET COUNT 180 K/mm3 (130-400); WHITE BLOOD COUNT 8.1 K/mm3 (4.8-10.8)
[2020-02-05 06:08] LABS: POTASSIUM 3.5 mmol/L (3.5-5.1)
[2020-02-05 06:09] LABS: CALCIUM 8.5 mg/dL (8.3-10.5)
[2020-02-05 06:43] LABS: LYMPHOCYTE 25 % (20-51); MONOCYTE 6 % (3-10); NEUTROPHILS 22 % (42-75)
[2020-02-05 17:48] VITALS: BP 152/72
[2020-02-06 05:43] VITALS: BP 154/79
[2020-02-06 17:37] VITALS: BP 180/87
[2020-02-07 06:17] VITALS: BP 161/75
[2020-02-07 18:04] VITALS: BP 131/76; BP 156/81
[2020-02-08 06:25] VITALS: BP 172/76
[2020-02-08 17:39] VITALS: BP 181/83
[2020-02-09 06:10] VITALS: BP 161/80
[2020-02-09 17:41] VITALS: BP 182/85
[2020-02-10 05:18] VITALS: BP 177/82
[2020-02-10 17:23] VITALS: BP 168/83
[2020-02-11 05:39] VITALS: BP 179/86
[2020-02-11 17:03] VITALS: BP 161/80
[2020-02-12 05:24] VITALS: BP 155/73
[2020-02-12 10:58] LABS: POTASSIUM 4.3 mmol/L (3.5-5.1)
[2020-02-12 10:59] LABS: CALCIUM 9.3 mg/dL (8.3-10.5); HEMATOCRIT 36.6 % (37.0-47.0); HEMOGLOBIN 11.3 g/dL (12.5-16.0); MEAN CELL VOLUME 86 fl (78-100); MEAN CORPUSCULAR HEMOGLOBIN 26 pg (27-31); MEAN CORPUSCULAR HGB CONC 31 g/dL (33-37); MEAN PLATELET VOLUME 10.4 fl (7.4-10.4); PLATELET COUNT 252 K/mm3 (130-400); RED BLOOD COUNT 4.28 M/mm3 (4.10-5.30); RED CELL DISTRIBUTION WIDTH 15.7 % (11.5-14.5); WHITE BLOOD COUNT 6.2 K/mm3 (4.8-10.8)
[2020-02-12 11:44] LABS: LYMPHOCYTE 32 % (20-51); MONOCYTE 4 % (3-10); NEUTROPHILS 55 % (42-75)
[2020-02-12 16:40] VITALS: BP 170/83
[2020-02-13 05:56] VITALS: BP 147/74
[2020-02-13] MEDS ORDERED: ZESTRIL30 MG PO (09:11)
[2020-02-13] MEDS ORDERED: NOVOLOG 100U100 U/ML SQ (09:13)
[2020-02-13 14:11] VITALS: BP 163/80
== END 2020-02-13 14:55 | disposition home health service (06) | DRG 947 ==
LOC: MED/SURG 16:33
PROVIDERS: Physician Assistant; ADMIT Nurse Practitioner Family
DX: R53.81 Other malaise (principal); A41.9 Sepsis, unspecified organism; K57.92 Diverticulitis of intestine, part unspecified, without perforation or abscess without bleeding; N17.9 Acute kidney failure, unspecified; E11.9 Type 2 diabetes mellitus without complications; I10 Essential (primary) hypertension; E78.5 Hyperlipidemia, unspecified; K21.9 Gastro-esophageal reflux disease without esophagitis; Z66 Do not resuscitate; Z90.710 Acquired absence of both cervix and uterus; Z79.4 Long term (current) use of insulin; Z85.42 Personal history of malignant neoplasm of other parts of uterus; Z79.891 Long term (current) use of opiate analgesic; K52.81 Eosinophilic gastritis or gastroenteritis
CPT/HCPCS: J1650; J1815

== ENCOUNTER → 2020-03-26 | Outpatient (CLI) | payer MEDICAID ==
[~2020-03-26] MED LIST changes: +ACIDOPHILUS1 EAC2 PO; +BENTYL 20MG20 MG/TAB PO; +DESENEX43 GM TP; +NOVOLOG 100U100 U/ML SQ
[2020-03-26 08:14] LABS: EOS # 0.4 (0.04-0.40); EOS % 5.3 % (1.0-5.0); HEMATOCRIT 41.2 % (37.0-47.0); HEMOGLOBIN 12.8 g/dL (12.5-16.0); LYMPH# 3.2 (1.50-4.00); MEAN CELL VOLUME 86 fl (78-100); MEAN CORPUSCULAR HEMOGLOBIN 27 pg (27-31); MEAN CORPUSCULAR HGB CONC 31 g/dL (33-37); MEAN PLATELET VOLUME 10.9 fl (7.4-10.4); MONO # 0.7 (0.20-0.80); NEU # 2.7 (1.40-6.50); PLATELET COUNT 291 K/mm3 (130-400); RED BLOOD COUNT 4.82 M/mm3 (4.10-5.30); RED CELL DISTRIBUTION WIDTH 15.9 % (11.5-14.5)
[2020-03-26 08:16] LABS: POTASSIUM 4.1 mmol/L (3.5-5.1)
[2020-03-26 08:17] LABS: CALCIUM 9.4 mg/dL (8.3-10.5)
[2020-03-26 08:22] LABS: URINE APPEARANCE CLEAR; URINE BILIRUBIN NEGATIVE (NEGATIVE); URINE BLOOD NEGATIVE (NEGATIVE); URINE COLOR YELLOW; URINE GLUCOSE NEGATIVE (NEGATIVE); URINE KETONE NEGATIVE (NEGATIVE); URINE LEUKOCYTE ESTERASE NEGATIVE (NEGATIVE); URINE NITRATE NEGATIVE (NEGATIVE); URINE PROTEIN(semi-quant) NEGATIVE (NEGATIVE); URINE UROBILINOGEN NORMAL (NORMAL)
[2020-03-26 08:24] LABS: MAGNESIUM 1.66 mg/dL (1.60-2.60)
== END ==
LOC: LAB 02-22 12:58
PROVIDERS: Family Medicine
DX: E11.9 Type 2 diabetes mellitus without complications (principal); E87.6 Hypokalemia

== ENCOUNTER → 2020-04-13 | Outpatient (CLI) | payer MEDICAID | LOC: LAB 11:37 | DX: E11.9 Type 2 diabetes mellitus without complications (principal) ==

== ENCOUNTER → 2020-06-25 | Outpatient (CLI) | payer MEDICAID ==
[2020-06-25 13:58] LABS: POTASSIUM 4.1 mmol/L (3.5-5.1)
[2020-06-25 14:05] LABS: MAGNESIUM 1.64 mg/dL (1.60-2.60)
== END ==
LOC: LAB 13:34
PROVIDERS: Family Medicine
DX: E11.9 Type 2 diabetes mellitus without complications (principal); E83.42 Hypomagnesemia; E87.6 Hypokalemia; R19.7 Diarrhea, unspecified

== ENCOUNTER → 2020-10-01 | Outpatient (CLI) | payer MEDICARE, MEDICAID ==
[2020-10-01 08:36] LABS: POTASSIUM 5.2 mmol/L (3.5-5.1)
[2020-10-01 08:37] LABS: CALCIUM 9.7 mg/dL (8.3-10.5)
[2020-10-01 08:44] LABS: MAGNESIUM 1.61 mg/dL (1.60-2.60)
== END ==
LOC: LAB 08:11
PROVIDERS: Family Medicine
DX: E11.9 Type 2 diabetes mellitus without complications (principal); E83.42 Hypomagnesemia; E87.6 Hypokalemia; R19.7 Diarrhea, unspecified

== ENCOUNTER → 2020-11-12 | Outpatient (CLI) | payer MEDICARE, MEDICAID | LOC: LAB 14:04 | DX: R35.8 Other polyuria (principal) ==

== ENCOUNTER → 2020-11-19 | Outpatient (CLI) | payer MEDICARE, MEDICAID ==
[2020-11-19 10:03] LABS: URINE APPEARANCE CLEAR; URINE BILIRUBIN NEGATIVE (NEGATIVE); URINE BLOOD NEGATIVE (NEGATIVE); URINE COLOR YELLOW; URINE GLUCOSE NEGATIVE (NEGATIVE); URINE KETONE NEGATIVE (NEGATIVE); URINE LEUKOCYTE ESTERASE NEGATIVE (NEGATIVE); URINE NITRATE NEGATIVE (NEGATIVE); URINE PROTEIN(semi-quant) TRACE mg/dL (NEGATIVE); URINE UROBILINOGEN NORMAL (NORMAL)
== END ==
LOC: LAB 08:56
PROVIDERS: Family Medicine
DX: N39.0 Urinary tract infection, site not specified (principal)

== ENCOUNTER → 2020-12-04 | Outpatient (CLI) | payer MEDICARE, MEDICAID ==
[2020-12-04 09:22] LABS: URINE APPEARANCE HAZY; URINE BILIRUBIN NEGATIVE (NEGATIVE); URINE BLOOD NEGATIVE (NEGATIVE); URINE COLOR LT YELLOW; URINE KETONE NEGATIVE (NEGATIVE); URINE LEUKOCYTE ESTERASE NEGATIVE (NEGATIVE); URINE NITRATE NEGATIVE (NEGATIVE); URINE PROTEIN(semi-quant) NEGATIVE (NEGATIVE); URINE UROBILINOGEN NORMAL (NORMAL); URINE WBC 0-1 /hpf (0-3)
== END ==
LOC: LAB 08:16
PROVIDERS: Family Medicine
DX: N39.0 Urinary tract infection, site not specified (principal)

== ENCOUNTER → 2021-02-23 | Outpatient (CLI) | payer MEDICARE, MEDICAID ==
[2021-02-23 08:48] LABS: EOS # 0.4 (0.04-0.40); EOS % 5.2 % (1.0-5.0); HEMOGLOBIN 12.9 g/dL (12.5-16.0); LYMPH# 2.9 (1.50-4.00); MEAN CELL VOLUME 88 fl (78-100); MEAN CORPUSCULAR HEMOGLOBIN 28 pg (27-31); MEAN CORPUSCULAR HGB CONC 32 g/dL (33-37); MEAN PLATELET VOLUME 10.5 fl (7.4-10.4); MONO # 0.6 (0.20-0.80); NEU # 3.3 (1.40-6.50); PLATELET COUNT 225 K/mm3 (130-400); RED BLOOD COUNT 4.65 M/mm3 (4.10-5.30); RED CELL DISTRIBUTION WIDTH 13.5 % (11.5-14.5); WHITE BLOOD COUNT 7.3 K/mm3 (4.8-10.8)
[2021-02-23 09:33] LABS: ALBUMIN 3.9 g/dL (3.4-4.8); POTASSIUM 4.2 mmol/L (3.5-5.1)
[2021-02-23 09:34] LABS: CALCIUM 9.3 mg/dL (8.3-10.5)
[2021-02-23 09:35] LABS: TOTAL PROTEIN 6.7 g/dL (6.2-8.1)
[2021-02-23 09:37] LABS: TOTAL BILIRUBIN 0.3 mg/dL (0.2-1.2)
== END ==
LOC: LAB 08:03
PROVIDERS: Family Medicine
DX: E11.40 Type 2 diabetes mellitus with diabetic neuropathy, unspecified (principal); R63.4 Abnormal weight loss

== ENCOUNTER → 2021-02-24 | Outpatient (CLI) | payer MEDICARE, MEDICAID ==
[2021-02-24 08:46] LABS: URINE APPEARANCE CLEAR; URINE BILIRUBIN NEGATIVE (NEGATIVE); URINE BLOOD NEGATIVE (NEGATIVE); URINE COLOR YELLOW; URINE GLUCOSE NEGATIVE (NEGATIVE); URINE KETONE NEGATIVE (NEGATIVE); URINE LEUKOCYTE ESTERASE NEGATIVE (NEGATIVE); URINE NITRATE NEGATIVE (NEGATIVE); URINE PROTEIN(semi-quant) NEGATIVE (NEGATIVE); URINE UROBILINOGEN NORMAL (NORMAL)
== END ==
LOC: LAB 08:17
PROVIDERS: Family Medicine
DX: R63.4 Abnormal weight loss (principal); R82.79 Other abnormal findings on microbiological examination of urine

== ENCOUNTER → 2021-03-04 | Outpatient (CLI) | payer MEDICARE, MEDICAID ==
[2021-03-04 08:14] LABS: URINE APPEARANCE CLEAR; URINE BILIRUBIN NEGATIVE (NEGATIVE); URINE BLOOD NEGATIVE (NEGATIVE); URINE COLOR YELLOW; URINE GLUCOSE NEGATIVE (NEGATIVE); URINE KETONE NEGATIVE (NEGATIVE); URINE LEUKOCYTE ESTERASE NEGATIVE (NEGATIVE); URINE NITRATE NEGATIVE (NEGATIVE); URINE PROTEIN(semi-quant) NEGATIVE (NEGATIVE); URINE UROBILINOGEN NORMAL (NORMAL)
== END ==
LOC: LAB 08:07
PROVIDERS: Family Medicine
DX: N39.0 Urinary tract infection, site not specified (principal)

== ENCOUNTER → 2021-03-18 | Outpatient (CLI) | payer MEDICARE, MEDICAID ==
[2021-03-18 09:02] LABS: URINE APPEARANCE CLEAR; URINE BILIRUBIN NEGATIVE (NEGATIVE); URINE BLOOD NEGATIVE (NEGATIVE); URINE COLOR YELLOW; URINE KETONE NEGATIVE (NEGATIVE); URINE LEUKOCYTE ESTERASE NEGATIVE (NEGATIVE); URINE NITRATE NEGATIVE (NEGATIVE); URINE PROTEIN(semi-quant) NEGATIVE (NEGATIVE); URINE UROBILINOGEN NORMAL (NORMAL); URINE WBC 0-1 /hpf (0-3)
== END ==
LOC: LAB 08:36
PROVIDERS: Family Medicine
DX: R73.9 Hyperglycemia, unspecified (principal); R45.4 Irritability and anger

== ENCOUNTER → 2021-03-29 | Outpatient (CLI) | payer MEDICARE, MEDICAID | LOC: VAS 09:18 | DX: M79.662 Pain in left lower leg (principal); M79.89 Other specified soft tissue disorders ==

== ENCOUNTER → 2021-08-12 | Outpatient (CLI) | payer MEDICARE, MEDICAID ==
[2021-08-12 09:29] LABS: URINE APPEARANCE HAZY; URINE BILIRUBIN NEGATIVE (NEGATIVE); URINE BLOOD 50 ery/uL (NEGATIVE); URINE COLOR YELLOW; URINE GLUCOSE NEGATIVE (NEGATIVE); URINE KETONE NEGATIVE (NEGATIVE); URINE LEUKOCYTE ESTERASE 2+ (NEGATIVE); URINE NITRATE NEGATIVE (NEGATIVE); URINE PROTEIN(semi-quant) TRACE mg/dL (NEGATIVE); URINE UROBILINOGEN NORMAL (NORMAL); URINE WBC 16-30 /hpf (0-3)
== END ==
LOC: LAB 08:29
PROVIDERS: Family Medicine
DX: E11.9 Type 2 diabetes mellitus without complications (principal); N39.0 Urinary tract infection, site not specified

== ENCOUNTER → 2021-08-20 | Outpatient (CLI) | payer MEDICARE, MEDICAID ==
[2021-08-20 13:55] LABS: URINE APPEARANCE HAZY; URINE COLOR YELLOW
[2021-08-20 13:56] LABS: URINE BILIRUBIN NEGATIVE (NEGATIVE); URINE BLOOD 50 ery/uL (NEGATIVE); URINE GLUCOSE NEGATIVE (NEGATIVE); URINE KETONE NEGATIVE (NEGATIVE); URINE LEUKOCYTE ESTERASE TRACE (NEGATIVE); URINE NITRATE NEGATIVE (NEGATIVE); URINE PROTEIN(semi-quant) TRACE mg/dL (NEGATIVE); URINE UROBILINOGEN NORMAL (NORMAL)
== END ==
LOC: LAB 13:42
PROVIDERS: Family Medicine
DX: N39.0 Urinary tract infection, site not specified (principal)

== ENCOUNTER → 2021-08-24 | Outpatient (CLI) | payer MEDICARE, MEDICAID | END | disposition still patient (30) | LOC: LAB 03:16 | DX: R63.4 Abnormal weight loss (principal) ==

== ENCOUNTER → 2021-11-22 | Outpatient (CLI) | payer MEDICARE, MEDICAID | LOC: LAB 08:00 | DX: E11.9 Type 2 diabetes mellitus without complications (principal); R41.9 Unspecified symptoms and signs involving cognitive functions and awareness ==

== ENCOUNTER → 2022-03-08 | Outpatient (CLI) | payer MEDICARE, MEDICAID ==
[2022-03-08 08:18] LABS: ALBUMIN 3.8 g/dL (3.4-4.8)
[2022-03-08 08:19] LABS: CALCIUM 9.9 mg/dL (8.3-10.5)
[2022-03-08 08:22] LABS: TOTAL BILIRUBIN 0.4 mg/dL (0.2-1.2)
== END ==
LOC: LAB 07:48
PROVIDERS: Family Medicine
DX: N39.0 Urinary tract infection, site not specified (principal); E11.9 Type 2 diabetes mellitus without complications; I10 Essential (primary) hypertension; R41.9 Unspecified symptoms and signs involving cognitive functions and awareness

== ENCOUNTER → 2022-04-26 | Outpatient (CLI) | payer MEDICARE, MEDICAID | LOC: MAMMO 11:30 | DX: Z12.31 Encounter for screening mammogram for malignant neoplasm of breast (principal) ==

== ENCOUNTER → 2022-10-03 | Outpatient (CLI) | payer MEDICARE, MEDICAID | LOC: RAD 07:45 | DX: M25.512 Pain in left shoulder (principal) ==

== ENCOUNTER → 2022-10-05 | Outpatient (CLI) | payer MEDICARE, MEDICAID | LOC: RAD 09:30 | DX: M19.012 Primary osteoarthritis, left shoulder (principal) ==

== ENCOUNTER → 2022-12-19 | Outpatient (CLI) | payer MEDICARE, MEDICAID ==
[2022-12-19 07:40] LABS: URINE APPEARANCE HAZY; URINE BILIRUBIN NEGATIVE (NEGATIVE); URINE BLOOD NEGATIVE (NEGATIVE); URINE COLOR YELLOW; URINE KETONE NEGATIVE (NEGATIVE); URINE LEUKOCYTE ESTERASE 1+ (NEGATIVE); URINE NITRATE NEGATIVE (NEGATIVE); URINE PROTEIN(semi-quant) TRACE (NEGATIVE); URINE UROBILINOGEN NORMAL (NORMAL)
== END ==
LOC: LAB 06:45
PROVIDERS: Family Medicine
DX: Z01.812 Encounter for preprocedural laboratory examination (principal); I10 Essential (primary) hypertension; M75.122 Complete rotator cuff tear or rupture of left shoulder, not specified as traumatic; S46.292D Other injury of muscle, fascia and tendon of other parts of biceps, left arm, subsequent encounter; E11.40 Type 2 diabetes mellitus with diabetic neuropathy, unspecified; K21.9 Gastro-esophageal reflux disease without esophagitis; D50.9 Iron deficiency anemia, unspecified; N39.0 Urinary tract infection, site not specified

== ENCOUNTER → 2022-12-22 | Outpatient (CLI) | payer MEDICARE, MEDICAID ==
[2022-12-22 08:10] LABS: URINE APPEARANCE HAZY; URINE BILIRUBIN NEGATIVE (NEGATIVE); URINE BLOOD TRACE (NEGATIVE); URINE COLOR YELLOW; URINE KETONE NEGATIVE (NEGATIVE); URINE LEUKOCYTE ESTERASE TRACE (NEGATIVE); URINE NITRATE NEGATIVE (NEGATIVE); URINE PROTEIN(semi-quant) TRACE (NEGATIVE); URINE UROBILINOGEN NORMAL (NORMAL)
[2022-12-22 08:11] LABS: URINE MUCUS PRESENT (NOT PRESENT)
== END ==
LOC: LAB 06:55
PROVIDERS: Family Medicine
DX: N39.0 Urinary tract infection, site not specified (principal)

== ENCOUNTER → 2023-02-21 | Outpatient (CLI) | payer MEDICARE, MEDICAID ==
[2023-02-21 11:18] LABS: URINE APPEARANCE CLOUDY; URINE BILIRUBIN NEGATIVE (NEGATIVE); URINE BLOOD TRACE (NEGATIVE); URINE COLOR YELLOW; URINE GLUCOSE NEGATIVE (NEGATIVE); URINE KETONE NEGATIVE (NEGATIVE); URINE LEUKOCYTE ESTERASE 2+ (NEGATIVE); URINE NITRATE NEGATIVE (NEGATIVE); URINE PROTEIN(semi-quant) 1+ (NEGATIVE); URINE UROBILINOGEN NORMAL (NORMAL); URINE WBC >50 /hpf (0-3)
== END ==
LOC: LAB 09:59
PROVIDERS: Family Medicine
DX: R82.90 Unspecified abnormal findings in urine (principal)

== ENCOUNTER → 2023-08-03 | Outpatient (CLI) | payer MEDICARE, MEDICAID ==
[2023-08-03 10:08] LABS: URINE WBC 0 /hpf (0-3)
[2023-08-03 10:41] LABS: URINE APPEARANCE CLEAR; URINE COLOR STRAW; URINE PROTEIN(semi-quant) NEGATIVE (NEGATIVE)
[2023-08-03 10:43] LABS: URINE BILIRUBIN NEGATIVE (NEGATIVE); URINE BLOOD NEGATIVE (NEGATIVE); URINE KETONE NEGATIVE (NEGATIVE); URINE LEUKOCYTE ESTERASE NEGATIVE (NEGATIVE); URINE NITRATE NEGATIVE (NEGATIVE); URINE UROBILINOGEN NORMAL (NORMAL)
[2023-08-03 10:53] LABS: BASO # 0.04 K/mm3 (0.02-0.10); EOS % 2.2 % (1.0-5.0); HEMATOCRIT 40.7 % (37.0-47.0); HEMOGLOBIN 13.2 g/dL (12.5-16.0); LYMPH# 2.92 K/mm3 (1.50-4.00); MEAN CELL VOLUME 88 fl (78-100); MEAN CORPUSCULAR HEMOGLOBIN 29 pg (27-31); MEAN CORPUSCULAR HGB CONC 32 g/dL (33-37); MEAN PLATELET VOLUME 10.9 fl (7.4-10.4); MONO # 0.68 K/mm3 (0.20-0.80); NEU # 5.05 K/mm3 (1.40-6.50); PLATELET COUNT 170 K/mm3 (130-400); RED BLOOD COUNT 4.62 M/mm3 (4.10-5.30); RED CELL DISTRIBUTION WIDTH 13.2 % (11.5-14.5); WHITE BLOOD COUNT 8.9 K/mm3 (4.8-10.8)
[2023-08-03 10:59] LABS: ALBUMIN 3.7 g/dL (3.4-4.8); POTASSIUM 4.6 mmol/L (3.5-5.1)
[2023-08-03 11:01] LABS: CALCIUM 9.6 mg/dL (8.3-10.5)
[2023-08-03 11:02] LABS: TOTAL PROTEIN 7.1 g/dL (6.2-8.1)
[2023-08-03 11:04] LABS: TOTAL BILIRUBIN 0.3 mg/dL (0.2-1.2)
== END ==
LOC: RAD 09:55 → LAB 09:55
PROVIDERS: Family Medicine
DX: R10.9 Unspecified abdominal pain (principal)

== ENCOUNTER → 2023-10-27 | Outpatient (CLI) | payer MEDICARE, MEDICAID ==
[2023-10-27 18:40] LABS: CREATININE OTHER SOURCE 23 mg/dL (63-166)
== END ==
LOC: LAB 07:53
PROVIDERS: Family Medicine
DX: E11.42 Type 2 diabetes mellitus with diabetic polyneuropathy (principal); I10 Essential (primary) hypertension; E78.2 Mixed hyperlipidemia; Z87.820 Personal history of traumatic brain injury

== ENCOUNTER → 2023-12-18 | Outpatient (CLI) | payer MEDICARE, MEDICAID ==
[2023-12-18 16:32] LABS: URINE APPEARANCE CLOUDY (CLEAR); URINE BILIRUBIN NEGATIVE (NEGATIVE); URINE BLOOD NEGATIVE (NEGATIVE); URINE COLOR YELLOW (YELLOW); URINE GLUCOSE NEGATIVE (NEGATIVE); URINE KETONE NEGATIVE (NEGATIVE); URINE LEUKOCYTE ESTERASE 1+ (NEGATIVE); URINE NITRATE NEGATIVE (NEGATIVE); URINE PROTEIN(semi-quant) NEGATIVE (NEGATIVE); URINE WBC >50 /hpf (0-3)
== END ==
LOC: LAB 16:13
PROVIDERS: Family Medicine
DX: R35.0 Frequency of micturition (principal)

== ENCOUNTER → 2024-02-20 | Outpatient (REF) | payer MEDICARE, MEDICAID ==
[2024-02-20 11:04] LABS: CALCIUM 9.7 mg/dL (8.3-10.5)
[2024-02-20 11:38] LABS: PH-URINE 5.5 (5.0 - 8.0); URINE APPEARANCE CLEAR (CLEAR); URINE BILIRUBIN NEGATIVE (NEGATIVE); URINE BLOOD TRACE-INTACT (NEGATIVE); URINE COLOR YELLOW (YELLOW); URINE GLUCOSE NEGATIVE (NEGATIVE); URINE KETONE NEGATIVE (NEGATIVE); URINE LEUKOCYTE ESTERASE NEGATIVE (NEGATIVE); URINE NITRATE NEGATIVE (NEGATIVE); URINE PROTEIN(semi-quant) NEGATIVE (NEGATIVE)
== END ==
LOC: LAB 09:49
PROVIDERS: Nurse Practitioner Family
DX: U07.1 COVID-19 (principal); R05.9 Cough, unspecified

== ENCOUNTER → 2024-03-06 | Outpatient (CLI) | payer MEDICARE, MEDICAID | LOC: LAB 11:33 | DX: E11.42 Type 2 diabetes mellitus with diabetic polyneuropathy (principal) ==

== ENCOUNTER → 2024-06-05 | Outpatient (CLI) | payer MEDICARE, MEDICAID ==
[2024-06-05 09:01] LABS: CALCIUM 9.1 mg/dL (8.3-10.5)
== END ==
LOC: LAB 08:33
PROVIDERS: Family Medicine
DX: E11.42 Type 2 diabetes mellitus with diabetic polyneuropathy (principal); E78.2 Mixed hyperlipidemia

== ENCOUNTER → 2024-09-05 | Outpatient (CLI) | payer MEDICARE, MEDICAID ==
[2024-09-05 09:08] LABS: CALCIUM 9.1 mg/dL (8.3-10.5)
== END ==
LOC: LAB 08:46
PROVIDERS: Family Medicine
DX: E11.9 Type 2 diabetes mellitus without complications (principal); I10 Essential (primary) hypertension

== ENCOUNTER → 2024-09-27 | Outpatient (REF) | payer MEDICARE, MEDICAID ==
[2024-09-27 09:17] LABS: PH-URINE 7.5 (5.0 - 8.0); URINE APPEARANCE SLIGHTLY CLOUDY (CLEAR); URINE BILIRUBIN NEGATIVE (NEGATIVE); URINE COLOR YELLOW (YELLOW); URINE GLUCOSE NEGATIVE (NEGATIVE); URINE KETONE NEGATIVE (NEGATIVE); URINE PROTEIN(semi-quant) NEGATIVE (NEGATIVE)
[2024-09-27 09:18] LABS: URINE BLOOD NEGATIVE (NEGATIVE); URINE LEUKOCYTE ESTERASE 2+ (NEGATIVE); URINE NITRATE POSITIVE (NEGATIVE); URINE WBC 16-30 /hpf (0-3)
== END ==
LOC: LAB 08:33
PROVIDERS: Family Medicine
DX: R82.998 Other abnormal findings in urine (principal)

== ENCOUNTER → 2024-11-05 | Outpatient (REF) | payer MEDICARE, MEDICAID ==
[2024-11-05 17:23] LABS: URINE APPEARANCE CLOUDY (CLEAR); URINE COLOR YELLOW (YELLOW)
[2024-11-05 17:26] LABS: PH-URINE 5.5 (5.0 - 8.0); URINE BILIRUBIN NEGATIVE (NEGATIVE); URINE BLOOD 1+ (NEGATIVE); URINE GLUCOSE NEGATIVE (NEGATIVE); URINE KETONE NEGATIVE (NEGATIVE); URINE LEUKOCYTE ESTERASE 3+ (NEGATIVE); URINE NITRATE NEGATIVE (NEGATIVE); URINE PROTEIN(semi-quant) 1+ (NEGATIVE)
[2024-11-05 17:31] LABS: URINE WBC >50 /hpf (0-3)
== END ==
LOC: LAB 17:09
PROVIDERS: Family Medicine
DX: N30.90 Cystitis, unspecified without hematuria (principal)